=== PATIENT | female | born 1995 | race Caucasian/White ===

== ENCOUNTER 2017-10-24 23:21 | Emergency (ER) | payer MEDICAID, SELFPAY ==
[2017-10-24 23:22] VITALS: BP 133/80; PULSE 97; RESP 16; TEMP 36.8; O2SAT 96; BMI 21.5
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
--- NOTE | 2017-10-24 23:50 | ED.RN ---
CALLED [facility], [facility] [facility] STATED THEY WILL LET VANDANA KNOW.
--- NOTE | 2017-10-24 23:51 | ED.RN ---
[facility] JUST CALLED BACK. TALKING TO DR TALBERT NOW.
[2017-10-24] MEDS: LORazepam 1 MG Tablet PO (23:53)
--- NOTE | 2017-10-25 00:15 | ED.RN ---
VANDANA TALKED TO DR TALBERT, THEY BELIEVE PT DOESN'T NEED TO BE ADMITTED OR EVALUATED BECAUSE PT IS ALREADY SET UP TO SEE A PSYCHIATRIST THIS WEEK.
[2017-10-25 00:19] LABS: Vista UDS pH Range 6
[2017-10-25 00:19] LABS: Absolute Lymphocyte Count 3.54 X10^3/ul (0.83-4.51); Absolute Neutrophil Count 4.7 X10^3/uL (2.0-7.7); Basophil# 0.01 X10^3/uL; Basophil% 0.1 % (0-1); Eosinophil# 0.09 X10^3/uL; Hematocrit 39.2 % (37-47); Hemoglobin 13.5 g/dl (12.0-15.0); Lymphocyte # 3.54 X10^3/ul (4.0); Lymphocyte % 39.4 % (19-41); Mean Corp Hgb Conc 34.4 g/gl (32-36); Mean Corpuscular Hgb 30.4 pg (27.0-32.0); Mean Corpuscular Volume 88.3 fL (81-99); Mean Platelet Vol. 10.1 fl (6.2-12.0); Monocyte# 0.63 X10^3/uL; Neutrophil % 52.4 % (47-70); Platelet Count 214 K/mm3 (150-450); RBC Distribution Width CV 11.6 % (11.6-14.6); RBC Distribution Width SD 36.9 fl (35.1-43.9); Red Blood Count 4.44 M/mm3 (4.2-5.4)
[2017-10-25 00:26] LABS: POSITIVE COUNT NO; POSITIVE DIFFERENTIAL NO; POSITIVE MORPHOLOGY NO
[2017-10-25 00:27] LABS: Anion Gap 9 (5-15); BUN 13 mg/dL (7-18); BUN/Creat Ratio 17.7 RATIO (10-20); Chloride 107 mmol/L (98-107); Creatinine, Serum 0.74 mg/dL (0.55-1.02); EST Glomerular Filtration Rate 107 mL/min (>60); Est Glom Filt Rate - Afr Amer 129 mL/min (>60); Estimated Creatinine Clearance 122.33 ml/min; Glucose 100 mg/dL (74-106); Potassium 3.4 mmol/L (3.5-5.1); Sodium Level 139 mmol/L (136-145)
[2017-10-25 00:28] LABS: Amphetamine Urine VISTA NEGATIVE (<1000 ng/mL); Barbiturate Urine VISTA NEGATIVE (< 200 ng/mL); Benzodiazepine Urine VISTA NEGATIVE (< 200 ng/mL); Cocaine Urine VISTA NEGATIVE (< 300 ng/mL); Ecstacy Urine VISTA NEGATIVE (< 500 ng/mL); Methadone Urine VISTA NEGATIVE (< 300 ng/mL); PCP Urine VISTA NEGATIVE (< 25 ng/mL); THC Urine VISTA POSITIVE (< 50 ng/mL)
[2017-10-25 01:22] LABS: Pregnancy, Serum, hCG Quali. NEGATIVE Negative (0-9 Nonpreg)
[2017-10-25 01:35] LABS: Alcohol, Blood (Medical)-Serum < 3.0 mg/dL
--- NOTE | 2017-10-25 01:46 | ED.DEP ---
ED Disposition - Plan for ED Patient: Disposition: Home or Assisted Living Chief Complaint: Anxiety Instructions: ED Depression, ED Panic Attack Prescriptions: Lorazepam [Ativan] 1 mg PO DAILY PRN PRN #10 tab PRN Reason: Anxiety Additional Instructions: Call and follow-up with your psychiatrist.
[2017-10-25 01:56] VITALS: RESP 16
== END 2017-10-25 01:57 | disposition home or self-care (01) ==
PROVIDERS: Emergency Provider Emergency Medicine
DX: F41.9 Anxiety disorder, unspecified (principal); F32.9 Major depressive disorder, single episode, unspecified; Z72.0 Tobacco use
CPT/HCPCS: 80048; 80307; 80320; 84703; 85025; 99283; G0480